=== PATIENT | female | born 1955 | race Caucasian/White ===

== ENCOUNTER 2016-07-13 12:26 | Observation (INO) | payer BC ==
[2016-07-13] VITALS (9 sets, daily range): BP systolic 101–157; BP diastolic 53–79; PULSE 59–88; RESP 16–18; TEMP 98.8; O2SAT 96–100
[~2016-07-13] VITALS: Ht 177.8 cm; Wt 109.8 kg
[~2016-07-13 12:26] MED LIST: AMLO2.5T PO; COZA100T PO; METO50TA PO; PROT40TA PO; SUCR1S PO
--- NOTE | 2016-07-13 14:48 | PD ---
HPI Chief Complaint: Chest Pain Time Seen by Provider: 14:47 Travel History International Travel<30 days: No Contact w/Intl Traveler<30days: No Traveled to known affect area: No History of Present Illness HPI 61-year-old female came to the emergency room with history of chest pain and not feeling well for past 1 week. She has history of GERD and has been taking her Protonix like she supposed to. She is also started taking Carafate which she takes only for GERD gets excessively worse and usually that brings her relief. However it hasn't been these past 2 days. She has a trip to [facility] for more than a month next week and feels uncomfortable going there without making sure that her heart is doing well. No history of vomiting or diarrhea. No history of cough. No history of shortness of breath. The pain is the burning sensation with sharp pain in the substernal area with no radiation. No aggravating or relieving factors. PFSH Past Medical History Narrative Medical List of her past medical, surgical, social and family history as reviewed from the nursing note. Depression: Yes Heart Rhythm Problems: No Cardiac Catheterization: No Cardiovascular Problems: Yes (HTN) High Cholesterol: Yes Congestive Heart Failure: No Diabetes: No GERD: Yes Hypertension: Yes ?: Not Tubal Ligation: Yes Past Surgical History Cholecystectomy: Yes Coronary Artery Bypass Graft: No Social History Alcohol Use: Yes (occas) Tobacco Use: No Substance Use: No Allergies-Medications (Allergen,Severity, Reaction): Coded Allergies: No Known Allergies (Unverified , 07/13/16) Comments No known drug allergies. Reported Meds & Prescriptions Reported Meds & Active Scripts Active Reported Montelukast (Montelukast Sodium) 10 Mg Tab 10 Mg PO DAILY Losartan-Hydrochlorothiazide 100-25 Mg Tab 1 Tab PO DAILY Amlodipine (Amlodipine Besylate) 10 Mg Tab 10 Mg PO DAILY Atorvastatin (Atorvastatin Calcium) 20 Mg Tab 20 Mg PO DAILY Pantoprazole (Pantoprazole Sodium) 40 Mg Tab 40 Mg PO DAILY Narrative Medication List of her home medications reviewed from the nursing note. Review of Systems Except as stated in HPI: all other systems reviewed are Neg Physical Exam Narrative GENERAL: Awake, alert, obese, anxious, no obvious distress SKIN: Warm and dry. HEAD: Atraumatic. Normocephalic. EYES: Pupils equal and round. No scleral icterus. No injection or drainage. ENT: No nasal bleeding or discharge. Dry mouth NECK: Trachea midline. No JVD. CARDIOVASCULAR: Regular rate and rhythm. No murmur appreciated. RESPIRATORY: No accessory muscle use. Clear to auscultation. Breath sounds equal bilaterally. GASTROINTESTINAL: Abdomen soft, non-tender, nondistended. Hepatic and splenic margins not palpable. MUSCULOSKELETAL: No obvious deformities. No clubbing. No cyanosis. No edema. NEUROLOGICAL: Awake and alert. No obvious cranial nerve deficits. Motor grossly within normal limits. Normal speech. PSYCHIATRIC: Appropriate mood and affect; insight and judgment normal. Data Data Last Documented VS Vital Signs Date Time Temp Pulse Resp B/P Pulse Ox O2 Delivery O2 Flow Rate FiO2 07/13/16 16:30 63 16 112/63 98 Room Air 07/13/16 12:35 98.8 Orders Electrocardiogram (07/13/16 ) Basic Metabolic Panel (Bmp) (07/13/16 15:04) Ckmb (Isoenzyme) Profile (07/13/16 15:04) Complete Blood Count With Diff (07/13/16 15:04) Magnesium (Mg) (07/13/16 15:04) Prothrombin Time / Inr (Pt) (07/13/16 15:04) Act Partial Throm Time (Ptt) (07/13/16 15:04) Troponin I (07/13/16 15:04) Chest, Single Ap (07/13/16 15:04) Ecg Monitoring (07/13/16 15:04) Bilateral Bp Monitoring (07/13/16 15:04) Iv Access Insert/Monitor (07/13/16 15:04) Oximetry (07/13/16 15:04) Oxygen Administration (07/13/16 15:04) Sodium Chloride 0.9% Flush (Ns Flush) (07/13/16 15:15) Aspirin Chew (Aspirin Chew) (07/13/16 17:15) Admit Order (Ed Use Only) (07/13/16 17:13) Labs Laboratory Tests Test 07/13/16 15:25 White Blood Count 7.2 TH/MM3 Red Blood Count 4.79 MIL/MM3 Hemoglobin 14.9 GM/DL Hematocrit 43.9 % Mean Corpuscular Volume 91.7 FL Mean Corpuscular Hemoglobin 31.0 PG Mean Corpuscular Hemoglobin 33.9 % Concent Red Cell Distribution Width 12.1 % Platelet Count 253 TH/MM3 Mean Platelet Volume 9.2 FL Neutrophils (%) (Auto) 57.7 % Lymphocytes (%) (Auto) 36.7 % Monocytes (%) (Auto) 5.0 % Eosinophils (%) (Auto) 0.2 % Basophils (%) (Auto) 0.4 % Neutrophils # (Auto) 4.2 TH/MM3 Lymphocytes # (Auto) 2.6 TH/MM3 Monocytes # (Auto) 0.4 TH/MM3 Eosinophils # (Auto) 0.0 TH/MM3 Basophils # (Auto) 0.0 TH/MM3 CBC Comment DIFF FINAL Differential Comment Prothrombin Time 10.9 SEC Prothromb Time International 1.0 RATIO Ratio Activated Partial 27.7 SEC Thromboplast Time Sodium Level 142 MEQ/L Potassium Level 3.6 MEQ/L Chloride Level 104 MEQ/L Carbon Dioxide Level 29.4 MEQ/L Anion Gap 9 MEQ/L Blood Urea Nitrogen 17 MG/DL Creatinine 0.84 MG/DL Estimat Glomerular Filtration 69 ML/MIN Rate Random Glucose 92 MG/DL Calcium Level 9.6 MG/DL Magnesium Level 2.2 MG/DL Total Creatine Kinase 84 U/L Troponin I LESS THAN 0.02 NG/ML MDM Medical Decision Making Medical Screen Exam Complete: Yes Emergency Medical Condition: Yes Medical Record Reviewed: Yes Interpretation(s) Twelve-lead EKG was reviewed by me. Normal sinus rhythm, normal axis, nonspecific ST-T wave changes. Heart rate of 70 bpm. Differential Diagnosis ACS, non-STEMI, nonspecific chest pain Narrative Course 3:16 PM patient said that her last stress test was 2 years ago. I explained to her that if her blood tests are negative she will be admitted overnight to the chest pain center to get a stress test tomorrow to be ruled out. She is okay with that plan. 3:50 PM awaiting for the blood test results. Case will be signed over to the oncoming ER physician. Procedures EKG Prior to Arrival: Yes Admitting Information Admitting Physician Requests: Observation Scripts Sucralfate (Carafate)1 Gm Tab1 Gm PO TID PRN (gerd) #90 TAB Ref 0 On empty stomach Prov:Jonny Moreau 07/14/16 Cornelia Sun MD Jul 13, 2016 14:48
[2016-07-13] MEDS ORDERED: SODIUM CHLORIDE 0.9% FLUSH 5 ML FLUSH IVF PRN ×2 (15:15→18:00)
[2016-07-13] MEDS ORDERED: ATOR20TA15 PO (15:46)
[2016-07-13] MEDS ORDERED: MONT10TA4 PO (15:46)
[2016-07-13] MEDS ORDERED: LOSA100T2 PO (15:46)
[2016-07-13] MEDS ORDERED: CARA1TAB6 PO (15:46)
[2016-07-13] MEDS ORDERED: PANT40TA3 PO (15:46)
[2016-07-13] MEDS ORDERED: AMLO10TA2 PO (15:46)
[2016-07-13 16:05] LABS: AUTOMATED NEUTROPHIL # 4.2 TH/MM3 (1.8-7.7); BASOPHIL % 0.4 % (0.0-2.0); EOSINOPHIL % 0.2 % (0.0-4.0); HEMATOCRIT 43.9 % (35.0-46.0); HEMO FLAGS DIFF FINAL; LYMPH % 36.7 % (9.0-44.0); LYMPHOCYTE # 2.6 TH/MM3 (1.0-4.8); MEAN CELL VOLUME 91.7 FL (80.0-100.0); MEAN CORPUSCULAR HGB CONC 33.9 % (32.0-36.0); NEUT % 57.7 % (16.0-70.0); PLATELET COUNT 253 TH/MM3 (150-450); RED BLOOD COUNT 4.79 MIL/MM3 (4.00-5.30); RED CELL DISTRIBUTION WIDTH 12.1 % (11.6-17.2); WHITE BLOOD COUNT 7.2 TH/MM3 (4.0-11.0)
--- NOTE | 2016-07-13 16:07 | RADHPO ---
EXAM DATE/TIME: 07/13/2016 15:31 [facility] COMPARISON: CHEST SINGLE AP, August 19, 2014, 16:38. INDICATIONS : Hypertension. Chest pain. MEDICAL HISTORY : Gastroesophageal reflux disease. Hypertension SURGICAL HISTORY : None. ENCOUNTER: Initial ACUITY: 1 day PAIN SCORE: 1/10 LOCATION: Bilateral chest FINDINGS: A single view of the chest demonstrates the lungs to be symmetrically aerated without evidence of mas s, infiltrate or effusion. The cardiomediastinal contours are unremarkable. There is a focal area of sclerosis at the proximal right humerus likely related to an enchondroma. This was seen previously.. CONCLUSION: No acute disease. Lei Diane MD on July 13, 2016 at 16:01 Board Certified Radiologist. This report was verified electronically.
[2016-07-13 16:16] LABS: CHLORIDE 104 MEQ/L (98-107); POTASSIUM 3.6 MEQ/L (3.5-5.1); SODIUM (NA) 142 MEQ/L (136-145)
[2016-07-13 16:19] LABS: ANION GAP 9 MEQ/L (5-15); APTT (PATIENT) 27.7 SEC (24.3-30.1); BICARBONATE 29.4 MEQ/L (21.0-32.0); PROTHROMBIN TIME - PATIENT 10.9 SEC (9.8-11.6)
[2016-07-13 16:20] LABS: BLOOD UREA NITROGEN 17 MG/DL (7-18); MAGNESIUM 2.2 MG/DL (1.5-2.5)
[2016-07-13 16:23] LABS: GLOMERULAR FILTRATION RATE 69 ML/MIN (>89)
[2016-07-13 17:10] LABS: CREATINE KINASE 84 U/L (26-192)
[2016-07-13] MEDS ORDERED: ASPIRIN 81 MG CHEW TAB PO ONE ×2 (17:15→17:30)
--- NOTE | 2016-07-13 17:16 | PD ---
Data Data Last Documented VS Vital Signs Date Time Temp Pulse Resp B/P Pulse Ox O2 Delivery O2 Flow Rate FiO2 07/13/16 15:30 139/71 117/67 07/13/16 15:15 78 16 100 Room Air 07/13/16 12:35 98.8 Orders Electrocardiogram (07/13/16 ) Basic Metabolic Panel (Bmp) (07/13/16 15:04) Ckmb (Isoenzyme) Profile (07/13/16 15:04) Complete Blood Count With Diff (07/13/16 15:04) Magnesium (Mg) (07/13/16 15:04) Prothrombin Time / Inr (Pt) (07/13/16 15:04) Act Partial Throm Time (Ptt) (07/13/16 15:04) Troponin I (07/13/16 15:04) Chest, Single Ap (07/13/16 15:04) Ecg Monitoring (07/13/16 15:04) Bilateral Bp Monitoring (07/13/16 15:04) Iv Access Insert/Monitor (07/13/16 15:04) Oximetry (07/13/16 15:04) Oxygen Administration (07/13/16 15:04) Sodium Chloride 0.9% Flush (Ns Flush) (07/13/16 15:15) Aspirin Chew (Aspirin Chew) (07/13/16 17:15) Labs Laboratory Tests Test 07/13/16 15:25 White Blood Count 7.2 TH/MM3 Red Blood Count 4.79 MIL/MM3 Hemoglobin 14.9 GM/DL Hematocrit 43.9 % Mean Corpuscular Volume 91.7 FL Mean Corpuscular Hemoglobin 31.0 PG Mean Corpuscular Hemoglobin 33.9 % Concent Red Cell Distribution Width 12.1 % Platelet Count 253 TH/MM3 Mean Platelet Volume 9.2 FL Neutrophils (%) (Auto) 57.7 % Lymphocytes (%) (Auto) 36.7 % Monocytes (%) (Auto) 5.0 % Eosinophils (%) (Auto) 0.2 % Basophils (%) (Auto) 0.4 % Neutrophils # (Auto) 4.2 TH/MM3 Lymphocytes # (Auto) 2.6 TH/MM3 Monocytes # (Auto) 0.4 TH/MM3 Eosinophils # (Auto) 0.0 TH/MM3 Basophils # (Auto) 0.0 TH/MM3 CBC Comment DIFF FINAL Differential Comment Prothrombin Time 10.9 SEC Prothromb Time International 1.0 RATIO Ratio Activated Partial 27.7 SEC Thromboplast Time Sodium Level 142 MEQ/L Potassium Level 3.6 MEQ/L Chloride Level 104 MEQ/L Carbon Dioxide Level 29.4 MEQ/L Anion Gap 9 MEQ/L Blood Urea Nitrogen 17 MG/DL Creatinine 0.84 MG/DL Estimat Glomerular Filtration 69 ML/MIN Rate Random Glucose 92 MG/DL Calcium Level 9.6 MG/DL Magnesium Level 2.2 MG/DL Total Creatine Kinase 84 U/L Troponin I LESS THAN 0.02 NG/ML MDM Supervised Visit with VEGA: No Narrative Course The patient was initially evaluated by the previous provider and sent out to me at the beginning my shift pending labs, imaging, and disposition. See her note for further details. Briefly this is a 61-year-old female who has history of hypertension and GERD, here for evaluation of substernal chest discomfort that has been intermittent for the last 2 days. No known history of cardiac disease. EKG shows no signs of ischemia. Vital signs reviewed and shows slight elevated blood pressure. CBC is unremarkable. BMP is unremarkable. Cardiac enzymes are negative. Chest x-ray shows no acute disease. Patient was made aware of all findings. She is resting comfortably. Currently chest pain-free. She will be given a dose of aspirin and will be admitted to the chest pain center for further cardiac evaluation. Case discussed with hospitalist Dr. Christine who will admit the patient to his service. Diagnosis Primary Impression: Chest pain Qualified Code: R07.9 - Chest pain, unspecified type Admitting Information Admitting Physician Requests: Chano Quezada MD Jul 13, 2016 17:16
[2016-07-13] MEDS ORDERED: ACETAMINOPHEN/HYDROcodone 325 MG/7.5 MG TAB PO PRN (18:00)
[2016-07-13] MEDS ORDERED: TEMAZEPAM 15 MG CAP PO PRN (18:00)
[2016-07-13] MEDS ORDERED: NITROGLYCERIN 0.4 MG SL 25 TABS/BTL SL PRN (18:00)
[2016-07-13] MEDS ORDERED: ONDANSETRON HCL 4 MG/2 ML VIAL IV PRN (18:00)
[2016-07-13] MEDS ORDERED: MORPHINE SULFATE 4 MG/ML INJ IV PRN (18:00)
[2016-07-13] MEDS ORDERED: SUCRALFATE 1 GM TAB PO PRN (18:00)
[2016-07-13] MEDS ORDERED: ACETAMINOPHEN 500 MG CPLT PO PRN (18:00)
[2016-07-13 20:13] LABS: CREATINE KINASE 65 U/L (26-192)
[2016-07-13] MEDS: SODIUM CHLORIDE 0.9% FLUSH 5 ML FLUSH IVF SCH (20:17)
[2016-07-13 23:48] LABS: CREATINE KINASE 64 U/L (26-192)
[2016-07-14] VITALS (8 sets, daily range): BP systolic 93–157; BP diastolic 58–72; PULSE 48–67; RESP 16–20; TEMP 96–96.8; O2SAT 93–99
--- NOTE | 2016-07-14 07:05 | HHI.HP ---
[facility] Physician Lei Ly DO Admission Diagnosis Chest Pain Diagnoses: (1) Chest pain Diagnosis: Principal (2) Hypertension Diagnosis: Secondary (3) Hyperlipidemia Diagnosis: Secondary (4) GERD (gastroesophageal reflux disease) Diagnosis: Secondary Chief Complaint: Chest pain Travel History International Travel<30 Days: No Contact w/Intl Traveler <30 Da: No Traveled to Known Affected Are: No History of Present Illness 61-year-old female with known history of hypertension, hyperlipidemia , gastroesophageal reflux who presented to the hospital because of multiple complaints to include chest discomfort, heartburn, episodes of elevated blood pressure. Patient states that she has normal state of health until 2 weeks ago when she had increased symptoms of her gastroesophageal reflux. She usually takes Protonix and Carafate. However despite these medications for reflux has gotten worse. She went to her primary medical doctor's office one week ago and that time her blood pressure was elevated and she is started on new blood pressure medication. Her blood pressure has been stable since then. Patient is planning on traveling to [facility] next week and wanted to get a full workup done prior to going. She knew that she cannot do this in outpatient setting so she came to the hospital for evaluation. Because the patient had two-week history of gastroesophageal reflux, heartburn, increased risk factors for cardiac disease as recommended by the ER physician that patient be admitted to chest pain center for further evaluation and management. Patient denies any active chest pain, vomiting, shortness of breath, dyspnea, dizziness. She states that she has had infrequent episodes of cold sweats at night. She has had nausea associated with her gastroesophageal reflux. Review of Systems Constitutional: COMPLAINS OF: Diaphoretic episodes, DENIES: Fatigue, Fever, Weight gain, Weight loss, Chills, Dizziness, Change in appetite, Night Sweats Eyes: DENIES: Blurred vision, Diplopia, Eye inflammation, Eye pain, Vision loss , Double Vision Ears, nose, mouth, throat: DENIES: Vertigo, Nasal discharge, Throat pain, Ear Pain, Running Nose, Sinus Pain Respiratory: DENIES: Apneas, Cough, Snoring, Wheezing, Hemoptysis, Sputum production, Shortness of breath Cardiovascular: COMPLAINS OF: Chest pain, DENIES: Palpitations, Syncope, Dyspnea on Exertion, Lower Extremity Edema, Orthopnea Gastrointestinal: DENIES: Abdominal pain, Black stools, Bloody stools, Constipation, Diarrhea, Nausea, Vomiting, Difficulty Swallowing, Anorexia Neurologic: DENIES: Abnormal gait, Headache, Localized weakness, Paresthesias, Seizures, Speech Problems, Tremor, Poor Balance Past Family Social History Past Medical History Hypertension Hyperlipidemia Gastroesophageal reflux Past Surgical History Cholecystectomy Tubal ligation Right wrist surgery Tonsillectomy Reported Medications Reported Meds & Active Scripts Active Reported Montelukast (Montelukast Sodium) 10 Mg Tab 10 Mg PO DAILY Losartan-Hydrochlorothiazide 100-25 Mg Tab 1 Tab PO DAILY Amlodipine (Amlodipine Besylate) 10 Mg Tab 10 Mg PO DAILY Atorvastatin (Atorvastatin Calcium) 20 Mg Tab 20 Mg PO DAILY Carafate (Sucralfate) 1 Gm Tab 1 Gm PO TID PRN On empty stomach Pantoprazole (Pantoprazole Sodium) 40 Mg Tab 40 Mg PO DAILY Allergies: Coded Allergies: No Known Allergies (Unverified , 07/13/16) Family History Reviewed and significant for father having coronary artery disease and stent placement when he was in his 60s. Mother with type 2 diabetes Social History Patient quit smoking 20 years ago prior to that she smoked one pack a cigarettes a day for 10 years. Does drink alcohol occasionally. Denies any illicit drug use. Physical Exam Vital Signs Vital Signs Date Time Temp Pulse Resp B/P Pulse Ox O2 Delivery O2 Flow Rate FiO2 07/14/16 05:00 55 07/14/16 04:00 96.8 59 16 138/72 97 07/14/16 00:27 67 07/14/16 00:00 96.4 57 20 157/70 99 07/13/16 23:43 71 07/13/16 23:28 18 95 07/13/16 21:26 60 18 107/53 96 Room Air 07/13/16 21:26 60 18 96 Room Air 07/13/16 19:46 98 07/13/16 19:15 59 18 101/55 100 Room Air 07/13/16 19:15 59 18 100 Room Air 07/13/16 17:30 60 16 111/64 98 Room Air 07/13/16 17:15 62 16 98 Room Air 07/13/16 16:30 63 16 112/63 98 Room Air 07/13/16 15:30 139/71 117/67 07/13/16 15:15 78 16 100 Room Air 07/13/16 15:10 16 98 Room Air 07/13/16 15:10 98 Room Air 07/13/16 12:35 98.8 88 16 157/79 98 Physical Exam GENERAL: Well-developed, well-nourished, in no acute distress. alert and orientated HEENT: Head is normocephalic without any lesions or masses noted. Facial features are symmetric. Eyes: Pupils equal round reactive to light. Extraocular muscles are intact. Conjunctivae were clear. Oropharyngeal: Pharynx without any erythema edema. Tongue is midline without deviation. Buccal mucosa is moist without any masses or lesions NECK: Supple without any masses. Trachea midline no deviation. No JVD, no bruits are appreciated CARDIAC: Regular rhythm, regular rate. S1/S2 are heard. No murmurs gallops or rubs. LUNGS: Clear to auscultation bilaterally. No wheeze, rhonchi or rales. No use of accessory muscles on inspiration or expiration. ABDOMEN: Soft, nontender. Nondistended. Bowel sounds heard in all 4 quadrants. No organomegaly or masses. Negative rebound, negative guarding EXTREMITIES: No edema, pulses are equal bilaterally. No cyanosis or clubbing NEUROLOGY: Mood and affect appear appropriate. Cranial nerves II through XII grossly intact. Muscle strength 5/5 in upper and lower extremities bilaterally. Deep tendon reflexes are 2+ in upper and lower extremities bilaterally. Laboratory Laboratory Tests Test 07/13/16 07/13/16 07/13/16 15:25 19:40 23:00 White Blood Count 7.2 Red Blood Count 4.79 Hemoglobin 14.9 Hematocrit 43.9 Mean Corpuscular Volume 91.7 Mean Corpuscular Hemoglobin 31.0 Mean Corpuscular Hemoglobin 33.9 Concent Red Cell Distribution Width 12.1 Platelet Count 253 Mean Platelet Volume 9.2 Neutrophils (%) (Auto) 57.7 Lymphocytes (%) (Auto) 36.7 Monocytes (%) (Auto) 5.0 Eosinophils (%) (Auto) 0.2 Basophils (%) (Auto) 0.4 Neutrophils # (Auto) 4.2 Lymphocytes # (Auto) 2.6 Monocytes # (Auto) 0.4 Eosinophils # (Auto) 0.0 Basophils # (Auto) 0.0 CBC Comment DIFF FINAL Differential Comment Prothrombin Time 10.9 Prothromb Time International 1.0 Ratio Activated Partial 27.7 Thromboplast Time Sodium Level 142 Potassium Level 3.6 Chloride Level 104 Carbon Dioxide Level 29.4 Anion Gap 9 Blood Urea Nitrogen 17 Creatinine 0.84 Estimat Glomerular Filtration 69 Rate Random Glucose 92 Calcium Level 9.6 Magnesium Level 2.2 Total Creatine Kinase 84 65 64 Troponin I LESS THAN 0.02 LESS THAN 0.02 LESS THAN 0.02 Result Diagram: 07/13/16 1525 07/13/16 1525 Imaging Last Impressions Chest X-Ray 07/13/16 1504 Signed Impressions: Service Date/Time: Wednesday, July 13, 2016 15:31 - CONCLUSION: No acute disease. Lei Diane MD Assessment and Plan Assessment and Plan Chest pain, atypical: Patient with increased risk factors to include age, hypertension, hyperlipidemia, family history heart disease, history of tobacco use. Patient has been ruled out for any acute coronary event with serial cardiac enzymes are negative. Serial EKGs were performed and reviewed by myself which indicated sinus rhythm without any changes. Patient underwent nuclear stress test. There is no signs of any ischemia, low risk. Patient's has perform exercise stress test in the past and she states that she had a syncopal episode following the test. Continue aspirin, nitroglycerin as needed , Lortab and morphine for pain control. Hypertension: Blood pressure stable. Patient's home medications were continued to include Norvasc, losartan, HCTZ Hyperlipidemia: Statin was continued Gastroesophageal reflux: Protonix and Carafate were continued DVT prevention: Sequential compression devices Written by Jonny Moreau PA-C, acting as scribe for Dr. Christine on 07/14/16 at 1155. The documentation accurately reflects the work and decisions performed face-to- face by Dr. Christine on 07/14/16 at 1155. Discharge disposition Discharge home in stable condition Activity: [place]. Diet: Healthy heart diet Medications per medication reconciliation Follow-up primary medical doctor in one week Problem Qualifiers (1) Chest pain: Qualified Code: R07.9 - Chest pain, unspecified type (2) Hypertension: Qualified Code: I15.9 - Secondary hypertension (3) Hyperlipidemia: Qualified Code: E78.5 - Hyperlipidemia, unspecified hyperlipidemia type (4) GERD (gastroesophageal reflux disease): Qualified Code: K21.9 - Gastroesophageal reflux disease, esophagitis presence not specified Jonny Moreau Jul 14, 2016 07:05
[2016-07-14] MEDS ORDERED: LOSARTAN 50 MG TAB PO SCH (09:00)
[2016-07-14] MEDS ORDERED: MONTELUKAST SODIUM 10 MG TAB PO SCH (09:00)
[2016-07-14] MEDS ORDERED: PANTOPRAZOLE SOD 40 MG DELAYED RELEASE TAB PO SCH (09:00)
[2016-07-14] MEDS ORDERED: ATORVASTATIN 20 MG TAB PO SCH (09:00)
[2016-07-14] MEDS ORDERED: ASPIRIN 325 MG TAB PO SCH (09:00)
[2016-07-14] MEDS ORDERED: HYDROCHLOROTHIAZIDE 25 MG TAB PO SCH (09:00)
[2016-07-14] MEDS: SODIUM CHLORIDE 0.9% FLUSH 5 ML FLUSH IVF SCH (09:44)
[2016-07-14] MEDS ORDERED: REGADENOSON INJ 0.4 MG/5 ML SYR IV ONE (09:53)
[2016-07-14] MEDS ORDERED: AMINOPHYLLINE INJ 250 MG/10 ML VIAL IV ONE (11:00)
[2016-07-14] MEDS ORDERED: SODIUM CHLOR 0.9% 1000 ML INJ 1,000 ML IV ONE (11:30)
--- NOTE | 2016-07-14 12:21 | RADHPO ---
EXAM DATE/TIME: 07/14/2016 10:12 [facility] COMPARISON: No previous studies available for comparison. INDICATIONS : Substernal chest pain for 1 week. Angina. DOSE: 35 mCi Tc99m Myoview at stress. 11 mCi Tc99m Myoview at rest. 0.4 mg Lexiscan STRESS SYMPTOMS: Dyspnea, tingling, abdominal pain and dizziness. Vasovagal. MEDICATIONS: 1.) 100 mg Aminophylline IV EJECTION FRACTION: 61% MEDICAL HISTORY : Hypercholesterolemia. Hypertension. Gastroesophageal reflux disease. SURGICAL HISTORY : Cholecystectomy. Tubal ligation. ENCOUNTER: Initial ACUITY: 1 week PAIN SCALE: 4/10 LOCATION: Substernal chest TECHNIQUE: The patient underwent pharmacologic stress with infusion of prescribed dose. Continuous ECG tracing was monitored during stress. Gated SPECT imaging was performed after stress and conventional SPECT i maging was performed at rest. The examination was performed on a SPECT/CT scanner, both attenuation and non-corrected datasets were reviewed. FINDINGS: DISTRIBUTION: The maximum perfused segment at stress is in the lateral wall. PERFUSION STUDY: The pattern of perfusion at stress is within normal limits. GATED STUDY: There is intact wall motion and thickening without hypokinetic or dyskinetic segments. CONCLUSION: No areas of ischemia are seen. RISK CATEGORY: Low (<1% Annual Mortality Rate) Lei Diane MD on July 14, 2016 at 12:11 Board Certified Radiologist. This report was verified electronically.
--- NOTE | 2016-07-14 13:09 | HHI.DCPOC ---
Discharge Care Plan Diagnosis: (1) Chest pain, atypical Goals to Promote Your Health * To prevent worsening of your condition and complications * To maintain your health at the optimal level Directions to Meet Your Goals Take your medications as prescribed Follow your dietary instruction Follow activity as directed Keep your appointments as scheduled Take your immunizations and boosters as scheduled If your symptoms worsen call your PCP, if no PCP go to Urgent Care Center or Emergency Room Smoking is Dangerous to Your Health. Avoid second hand smoke Call the 24-hour hour crisis hotline for domestic abuse at Jonny Moreau Jul 14, 2016 13:09
[2016-07-14] MEDS ORDERED: CARA1TAB6 PO (13:25)
--- NOTE | 2016-07-14 16:39 | TR ---
Date Performed: 07/14/2016 Time Performed: 10:26:35 DOCTOR: Nataly Gudino DRUG LIST: CLINICAL HISTORY: REASON FOR TEST: Chest pain REASON FOR ENDING: OBSERVATION: CONCLUSION: Lexiscan stress test was performed under standard four minute protocol. Radionuclid e was injected one minute prior to ending the test. No electrocardiographic abormalities were present to suggest ischemia. Nuclear imaging and interpretation are pending. COMMENTS:
--- NOTE | 2016-07-14 19:58 | EKG ---
Date Performed: 07/13/2016 Time Performed: 22:46:52 PTAGE: 61 years EKG: Sinus bradycardia. Normal ECG except for rate PREVIOUS TRACING : 07/13/2016 18.46 Compared to prior tracing no significant change DOCTOR: Fabiola Xiao Interpretating Date/Time 07/14/2016 19:56:21
--- NOTE | 2016-07-14 20:06 | EKG ---
Date Performed: 07/13/2016 Time Performed: 18:46:22 PTAGE: 61 years EKG: Sinus bradycardia Normal ECG except for rate PREVIOUS TRACING : 07/13/2016 12.42 Compared to prior tracing no significant change DOCTOR: Fabiola Xiao Interpretating Date/Time 07/14/2016 20:04:51
--- NOTE | 2016-07-14 20:23 | EKG ---
Date Performed: 07/13/2016 Time Performed: 12:42:50 PTAGE: 61 years EKG: Sinus rhythm Normal ECG PREVIOUS TRACING : 08/19/2014 22.49 Compared to the previous tracing rate faster DOCTOR: Fabiola Xiao Interpretating Date/Time 07/14/2016 20:22:59
== END 2016-07-14 14:26 | disposition home or self-care (01) ==
LOC: PHED 12:26 → PHEDA 17:13 → PH3A 23:26
PROVIDERS: ADMIT Hospitalist; ATTEND Hospitalist
DX: R07.89 Other chest pain (principal); I10 Essential (primary) hypertension; E78.5 Hyperlipidemia, unspecified; K21.9 Gastro-esophageal reflux disease without esophagitis; E78.00 Pure hypercholesterolemia, unspecified; Z87.891 Personal history of nicotine dependence; Z82.49 Family history of ischemic heart disease and other diseases of the circulatory system
CPT/HCPCS: 71010; 78452; 80048; 82550; 83735; 84484; 85025; 85610; 85730; 93005; 93017; 99285; A9502; G0378; J0280; J2785; J7030